=== PATIENT | female | born 1995 | race Caucasian/White ===

== ENCOUNTER → 2018-08-15 | Outpatient (CLI) | payer OTHER | END | disposition home or self-care (01) | LOC: FIMAGING 11:40 | PROVIDERS: ATTEND Obstetrics & Gynecology | DX: N94.10 Unspecified dyspareunia (principal); T83.32XA Displacement of intrauterine contraceptive device, initial encounter; N83.291 Other ovarian cyst, right side; Z87.42 Personal history of other diseases of the female genital tract ==